=== PATIENT | female | born 1985 | race Caucasian/White ===

== ENCOUNTER 2017-07-15 09:14 | Emergency (ER) | payer OTHER ==
[~2017-07-15] VITALS: Ht 172.7 cm; Wt 112.0 kg
[2017-07-15 09:27] VITALS: Ht 172.7 cm; Wt 112.0 kg
--- NOTE | 2017-07-15 09:40 | ERD ---
ER Documentation Chief Complaint Date/Time DATE: 07/15/17 TIME: 09:39 Chief Complaint c/o right knee pain s/p fall yesterday and landed on knee; CMS intact HPI 7-year-old female complains of right anterior knee pain status post fall that occurred yesterday. She states she fell directly onto her knee, describes pain over the patella that is achy, worse with weightbearing and better at rest. The pain is localized, and she had improvement of her pain when she last took ibuprofen yesterday. ROS All systems reviewed and are negative except as per history of present illness. Medications Home Meds Active Scripts Ibuprofen* (Motrin*) 600 Mg Tab, 600 MG PO Q6, #30 TAB Prov:WARNER SARABIA PA-C 07/15/17 Physical Exam Vitals Vital Signs Date Time Temp Pulse Resp B/P Pulse Ox O2 Delivery O2 Flow Rate FiO2 07/15/17 09:27 98.3 65 18 123/65 99 Physical Exam General: Well-developed, well-nourished. The patient appears in no acute distress. HEENT: Head is normocephalic, atraumatic. No scleral icterus. Neck: Supple. Nontender. Lungs: Clear to auscultation. Normal air movement. Heart: Regular rate and rhythm. S1 and S2 are normal. No murmurs, gallops, or rubs. Abdomen: Soft, nontender, nondistended. Bowel sounds are normoactive. Extremities: Right anterior knee soft tissue swelling, patella is intact, she is able to straight leg raise and have full range of motion with right knee flexion. Compartments are soft. Neurologic: Alert and oriented 3. No focal deficits. Skin: Normal turgor. No rash or lesions. Results 24 hrs Current Medications Medications (Trade) Dose Ordered Sig/Sabrina Route PRN Reason Start Time Stop Time Status Last Admin Dose Admin Acetaminophen/ Hydrocodone Bitart (Rydal (5/325)) 1 tab ONCE ONCE PO 07/15/17 10:00 07/15/17 10:00 DC Ibuprofen (Motrin) 600 mg ONCE ONCE PO 07/15/17 10:00 07/15/17 10:01 DC 07/15/17 09:46 PROCEDURE: Right knee series. CLINICAL INDICATION: Right knee pain TECHNIQUE: Three views of the right knee are available for review. COMPARISON: None available FINDINGS: There is normal mineralization and alignment of the bones of the right knee. No acute fracture or dislocation is identified. No joint effusion is seen. Overlying soft tissues are unremarkable. IMPRESSION: 1. Unremarkable right knee x-ray series. RPTAT: KK Signed By: Deion Devi M.D 07/15/2017 10:22:01 AM Procedures/MDM Course: She was given ibuprofen and Rydal for pain, x-rays of the right knee were obtained. Patient's right knee was wrapped with an ELLIOTT bandage. Medical decision makin-year-old female presents status post fall complaining of right anterior knee pain over the patella 3 there are no signs of fracture, dislocation, patella tendon rupture, quadricep tendon rupture. Patient presents with a contusion. X-rays of the right knee are normal, no acute fracture or dislocation. Departure Diagnosis: Primary Impression: Knee contusion Condition: WARNER Rangel PA-C Jul 15, 2017 09:40
[2017-07-15] MEDS ORDERED: IBUPROFEN 600 MG TAB PO ONE (10:00)
[2017-07-15] MEDS ORDERED: HYDROCODONE/APAP (5/325) TAB PO ONE (10:00)
[2017-07-15] MEDS ORDERED: IBUP-1542 PO (11:28)
--- NOTE | 2017-07-18 07:50 | RADRPT ---
PROCEDURE: Right knee series. CLINICAL INDICATION: Right knee pain TECHNIQUE: Three views of the right knee are available for review. COMPARISON: None available FINDINGS: There is normal mineralization and alignment of the bones of the right knee. No acute fracture or d islocation is identified. No joint effusion is seen. Overlying soft tissues are unremarkable. IMPRESSION: 1. Unremarkable right knee x-ray series. RPTAT: KK .Deion Devi MD, MD Date Time Electronically viewed and signed by .Deion Devi MD, MD on 07/15/2017 10:22 .B/
== END 2017-07-15 11:37 | disposition home or self-care (01) ==
LOC: FTE 09:14
DX: S80.01XA Contusion of right knee, initial encounter (principal); W18.39XA Other fall on same level, initial encounter; Y92.9 Unspecified place or not applicable
CPT/HCPCS: 73562; Z7502; Z7610